=== PATIENT | female | born 1980 | race Caucasian/White ===

== ENCOUNTER 2024-07-13 11:35 | Emergency (ER) | payer SELFPAY ==
[2024-07-13 13:03] LABS: Specific Gravity > 1.030 (1.005-1.030); Sqamous Epithelial <5 /HPF (None Seen); Urine Bacteria >50 /HPF (<20); Urine Bilirubin NEGATIVE (Negative); Urine Blood Negative (Negative); Urine Clarity Extremely Turbid (Clear); Urine Color Yellow (Yellow); Urine Culture Reflex Order NOT NEEDED; Urine Glucose NEGATIVE (Negative); Urine Ketones NEGATIVE (Negative); Urine Micro Reflex YN NO BILL MICROSCOPIC; Urine Nitrite 2+ (Negative); Urine Protein TRACE (Negative); Urine RBC <5 /HPF (None Seen); Urine Urobilinogen Normal (Normal); Urine pH 5.5 (5.0-7.0)
--- NOTE | 2024-07-13 13:07 | EDPHYS ---
Physician Documentation [facility] Name: Sasha Montoya Age: 44 yrs Sex: Female : 1980 Arrival Date: 07/13/2024 Time: 11:35 Bed 12 Private MD: ED Physician Marv Andersen HPI: 07/13 11:55 This 44 yrs old Female presents to ER via Ambulatory with complaints of Pain With ec2 Urination. 11:55 Patient arrives today for evaluation of dysuria and urinary frequency. History of ec2 chronic UTIs. No fevers or chills, nausea or vomiting.. 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 - Infectious Disease History:: Denies. - Social history:: Smoking status: Patient reports the use of cigarette tobacco products, smokes .1 packs per day, Reported history of juuling and/or vaping. ROS: 11:55 Constitutional: as per hpi ec2 Exam: 11:55 Constitutional: GEN: NAD Head: atraumatic Eyes: EOMI Ears: External ears are ec2 normal. CV: regular rate LUNGS: no respiratory distress ABD: non-distended SKIN: no evidence of rashes MSK: no evidence of trauma Vital Signs: 11:48 BP 119 / 79; Pulse 88; Resp 17; Temp 97.5; Pulse Ox 100% ; Weight 72.57 kg; Height 5 ll1 ft. 3 in. ; Pain 6/10; 13:11 BP 117 / 71; Pulse 87; Resp 17; Pulse Ox 100% ; ll1 11:48 Body Mass Index 28.34 (72.57 kg, 160.02 cm) ll1 11:48 Pain Scale: Adult ll1 MDM: 11:55 Data reviewed: vital signs. ED course: Patient arrives today for evaluation of dysuria ec2 and urinary frequency. Examination remarkable for nontoxic individual otherwise in no acute distress with a reassuring examination. Will obtain urine study. Differential includes urinary tract infection, pyelonephritis, dysuria . 13:06 ED course: Patient has urinary tract infection, was started on antibiotics. Return ec2 precautions given.. 13:06 Patient medically screened. ec2 07/13 11:53 Order name: SRIKANTH; Complete Time: 13:06 ec2 Administered Medications: No medications were administered Disposition Summary: 07/13/24 13:06 Discharge Ordered Notes: Location: Home ec2 Condition: Stable ec2 Diagnosis - Dysuria ec2 - UTI/ Urinary tract infection, site not specified ec2 Followup: ec2 - With: Private Physician - When: - Reason: Re-evaluation by your physician Discharge Instructions: - Discharge Summary Sheet ec2 - Dysuria ec2 Forms: - Work release form ll1 - Medication Reconciliation Form ec2 - Antibiotic Education ec2 - Prescription Opioid Use ec2 - Patient Portal Instructions ec2 - Leadership Thank You Letter ec2 Prescriptions: - Fluconazole 150 mg Oral tablet - take 1 tablet ORAL route once daily; 2 tablet; Refills: 0, Product Selection ec2 Permitted - Bactrim DS 800-160 mg Oral Tablet - take 1 tablet ORAL route every 12 hours for 7 days; 14 tablet; Refills: 0, ec2 Product Selection Permitted Signatures: Dispatcher [employer] Erika Ponce RN RN ll1 Marv Andersen MD MD ec2
--- NOTE | 2024-07-13 13:07 | ER ---
Nurse's Notes [facility] Name: Sasha Montoya Age: 44 yrs Sex: Female : 1980 Arrival Date: 07/13/2024 Time: 11:35 Bed 12 Private MD: Diagnosis: Dysuria;UTI/ Urinary tract infection, site not specified Presentation: 07/13 11:48 Chief complaint: Patient states: Yeast infections for 2-3 days. Believes she might have ll1 a kidney infection again. Noticed smelly urine. Coronavirus screen: Client denies travel out of the [place] in the last 14 days. At this time, the client does not indicate any symptoms associated with coronavirus-19. Ebola Screen: Patient denies travel to an Ebola-affected area in the 21 days before illness onset. Initial Sepsis Screen: Does the patient meet any 2 criteria? No. Patient's initial sepsis screen is negative. Does the patient have a suspected source of infection? No. Patient's initial sepsis screen is negative. Risk Assessment: Do you want to hurt yourself or someone else? Patient reports no desire to harm self or others. Onset of symptoms was July 11, 2024. 11:48 Method Of Arrival: Ambulatory ll1 11:48 Acuity: VARUN 3 ll1 Triage Assessment: 11:51 General: Appears in no apparent distress. Behavior is calm, cooperative, appropriate ll1 for age. Pain: Denies pain. Complains of pain in head Quality of pain is described as aching. Neuro: Reports headache. GI:. : Reports foul smelling urine. 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 - Infectious Disease History:: Denies. - Social history:: Smoking status: Patient reports the use of cigarette tobacco products, smokes .1 packs per day, Reported history of juuling and/or vaping. Screenin:55 [facility] ED Fall Risk Assessment (Adult) History of falling in the last 3 months, ll1 including since admission No falls in past 3 months (0 pts) Confusion or Disorientation No (0 pts) Intoxicated or Sedated No (0 pts) Impaired Gait No (0 pts) Mobility Assist Device Used No (0 pt) Altered Elimination No (0 pt) Score/Fall Risk Level 0 - 2 = Low Risk Maintained a safe environment, Hourly rounding (assess needs \T\ fall precautionary measures) done. Abuse screen: Denies threats or abuse. Nutritional screening: No deficits noted. Tuberculosis screening: No symptoms or risk factors identified. Assessment: 11:56 Reassessment: No changes from previously documented assessment. Patient and/or family ll1 updated on plan of care and expected duration. Pain level reassessed. Patient is alert, oriented x 3, equal unlabored respirations, skin warm/dry/pink. 12:15 Reassessment: No changes from previously documented assessment. Patient and/or family ll1 updated on plan of care and expected duration. Pain level reassessed. 12:48 Reassessment: No changes from previously documented assessment. Patient and/or family ll1 updated on plan of care and expected duration. Pain level reassessed. 13:11 Reassessment: No changes from previously documented assessment. Patient and/or family ll1 updated on plan of care and expected duration. Pain level reassessed. Patient is alert, oriented x 3, equal unlabored respirations, skin warm/dry/pink. Vital Signs: 11:48 BP 119 / 79; Pulse 88; Resp 17; Temp 97.5; Pulse Ox 100% ; Weight 72.57 kg; Height 5 ll1 ft. 3 in. ; Pain 6/10; 13:11 BP 117 / 71; Pulse 87; Resp 17; Pulse Ox 100% ; ll1 11:48 Body Mass Index 28.34 (72.57 kg, 160.02 cm) ll1 11:48 Pain Scale: Adult ll1 ED Course: 11:40 Patient arrived in ED. mg5 11:40 Marv Andersen MD is Attending Physician. ec2 11:48 Arm band placed on. ll1 11:50 Triage completed. ll1 11:55 Erika Varghese, JENI is Primary Nurse. ll1 11:55 Patient placed in an exam room, on a stretcher. ll1 11:55 Patient has correct armband on for positive identification. Bed in low position. ll1 Provided Education on: ER procedures and process. Cardiac monitoring not applicable on this patient. 12:48 [facility] Sent. am7 13:11 No provider procedures requiring assistance completed. Patient did not have IV access ll1 during this emergency room visit. Administered Medications: No medications were administered Medication: 11:55 VIS not applicable for this client. ll1 Outcome: 13:06 Discharge ordered by . ec2 13:11 Discharged to home ambulatory, ll1 13:11 Condition: stable 13:11 Discharge instructions given to patient, Instructed on discharge instructions, follow up and referral plans. medication usage, Demonstrated understanding of instructions, follow-up care, medications, Prescriptions given X 2, 13:11 Patient left the ED. 1 Signatures: Erika Varghese RN RN ll1 Diana Loya mg5 Marv Andersen MD MD ec2 Lindsay Reyez am7
[2024-07-13 14:54] VITALS: O2SAT 100
[2024-07-13 14:55] VITALS: BP 119/79; TEMP 97.5
== END 2024-07-13 13:11 | disposition home or self-care (01) ==
LOC: ER 11:35
DX: N39.0 Urinary tract infection, site not specified (principal); F17.210 Nicotine dependence, cigarettes, uncomplicated
CPT/HCPCS: 81001